=== PATIENT | female | born 1975 | race Native Hawaiian/Other Pacific Islander ===

== ENCOUNTER 2017-08-23 09:05 | Day surgery (SDC) | payer OTHER ==
[2017-08-21 09:05] VITALS: BMI 17.5
[2017-08-23] MEDS ORDERED: Lactated Ringer's 1,000 ML IV ONE ×2 (11:15→12:08)
[2017-08-23] MEDS ORDERED: Midazolam 2 MG/2 ML VIAL ONE (11:19)
[2017-08-23] MEDS ORDERED: Propofol 10 mg/ml Inj (20 ML) ONE (11:19)
[2017-08-23] MEDS ORDERED: HYDROmorphone 0.5 mg/0.5 ml ISec IVP PRN (12:03)
--- NOTE | 2017-08-23 12:18 | PCM.SURG1 ---
Surgeon's Initial Post Op Note - Surgeon's Notes Surgeon: Iram Alberts MD Maintenance Trainer: none Type of Anesthesia: General LMA Pre-Operative Diagnosis: Abnormal uterine bleeding, submucosal myoma Operative Findings: 12 week size antervertd tuers, bilateal ostia visulzed, posteior sumbucosl myoma 1cm protruding into cavity, thickened white enodemtrium , cervical stenosis, urine output 30cc clear yellow urine Post-Operative Diagnosis: same as above Operation Performed: Hysteroscopic myomectomy, Fractional dilation and currettage Specimen/Specimens Removed: submucosal myoma, endocervical curretting, endometrial currettings Estimated Blood Loss: EBL {In ML}: 15 Blood Products Given: N/A Drains Used: No Drains Post-Op Condition: Good Date of Surgery/Procedure: 08/23/17 Time of Surgery/Procedure: 11:30
[2017-08-23] MEDS ORDERED: Lactated Ringer's 500 ML IV ONE (12:57)
[2017-08-23 13:25] VITALS: RESP 18; O2SAT 100
--- NOTE | 2017-08-23 14:35 | OP ---
PROCEDURE DATE: 08/23/2017 PREOPERATIVE DIAGNOSIS: Abnormal uterine bleeding and submucosal myoma. POSTOPERATIVE DIAGNOSIS: Abnormal uterine bleeding and submucosal myoma. OPERATION PERFORMED: Hysteroscopic myomectomy and suction dilatation and curettage. SURGEON: Iram Alberts MD. WILLOW WORKER: None. TYPE OF ANESTHESIA: General LMA. OPERATIVE FINDINGS: A 12 weeks sized anteverted uterus. Bilateral ostia visualized. Posterior submucosal myoma was noted to be protruding in the cavity, thickened endometrium, cervical stenosis. ESTIMATED BLOOD LOSS: 15 mL. BLOOD PRODUCTS: None. URINE OUTPUT: 30 mL of clear yellow urine. COMPLICATIONS: None. SPECIMEN REMOVED: Submucosal myoma, endocervical curettings, endometrial curettings. DESCRIPTION OF PROCEDURE: Risks, benefits, alternatives, indications of procedure were discussed with the patient. The patient signed the consent. All questions were answered. The patient was taken to the operating room where she was given general anesthesia and once it was found to be adequate, the patient was placed on the operating table in the dorsal lithotomy position with legs supported using stirrups. The patient was then prepped and draped in the usual sterile fashion. A time-out confirmed correct patient and correct procedure. Bimanual exam was performed with the above-mentioned findings. A red rubber catheter was then inserted into the urethra to drain the bladder. Following this, a Smalls retractor was placed in the anterior and posterior fornix of the vagina. The cervix was adequately visualized. Endocervical curettings were obtained with a Kevmikeian curette and sent to pathology on [facility]. The uterus was then sounded to 12 cm and following this the cervix was sequentially dilated to allow for introduction of a 5 mm hysteroscope under direct visualization using normal saline as the distention media. Upon within the cavity, bilateral ostia were visualized and submucosal myomas on the posterior aspect noted midway along into the uterine cavity. MyoSure device was then inserted under direct visualization and the mass was then resected under direct visualization. There was good hemostasis noted. The MyoSure device was then removed and a gentle curettage 360 degrees and the specimen was sent to pathology and labeled as endometrial curettings. All instruments were removed. There was good hemostasis noted at the tenaculum puncture site. At the end of the procedure, all needle, sponge and instrument counts were noted and correct x2. The patient tolerated the procedure well and was transferred to the recovery room in stable condition. Iram Alberts MD
[2017-08-23 14:59] VITALS: BP 110/53; PULSE 88; TEMP 98
== END 2017-08-23 14:32 | disposition home or self-care (01) ==
LOC: C.SDS 09:05
PROVIDERS: ATTEND Obstetrics & Gynecology
DX: D25.2 Subserosal leiomyoma of uterus (principal); N93.9 Abnormal uterine and vaginal bleeding, unspecified; D25.0 Submucous leiomyoma of uterus
CPT/HCPCS: 36415; 58558; 86850; 86900; 88305; J2250; J2704; J3010; J7120

== ENCOUNTER 2017-08-28 11:15 | Emergency (ER) | payer OTHER ==
[2017-08-28 11:16] VITALS: BMI 17.5
[2017-08-28 11:49] VITALS: O2SAT 100
--- NOTE | 2017-08-28 12:26 | C.PDOC ---
History Of Present Illness 41 year old female, with past medical history of fibroids, presents to ED for evaluation of vaginal bleeding that started last night. Pt states it has been "flowing" and has used 7 pads since last night. Pt notes she has D&C last month after heavy bleeding (Hemoglobin of 4); this is her first menses after the D&C procedure. (+)chills. Denies dizziness, lightheadedness, headache, abdominal pain, n/v/d, or any other associated symptoms at this time. Time Seen by Provider: 08/28/17 11:55 Chief Complaint (Nursing): Female Genitourinary History Per: Patient History/Exam Limitations: no limitations Onset/Duration Of Symptoms: Days (1) Current Symptoms Are (Timing): Still Present Severity: None Pain Scale Rating Of: 0 Recent travel outside of the [place]: No Additional History Per: Patient Past Medical History Reviewed: Historical Data, Nursing Documentation, Vital Signs Vital Signs: Last Vital Signs Temp 98.8 F 08/28/17 14:20 Pulse 88 08/28/17 14:20 Resp 18 08/28/17 14:20 BP 98/60 L 08/28/17 14:20 Pulse Ox 100 08/28/17 14:20 - Medical History PMH: Anemia Denies: Chronic Kidney Disease Family History: States: Unknown Family Hx - Social History Hx Alcohol Use: No Hx Substance Use: No - Immunization History Hx Tetanus Toxoid Vaccination: No Hx Influenza Vaccination: No Hx Pneumococcal Vaccination: No Review Of Systems Except As Marked, All Systems Reviewed And Found Negative. Constitutional: Positive for: Chills. Negative for: Fever Cardiovascular: Negative for: Chest Pain, Palpitations, Light Headedness Respiratory: Negative for: Shortness of Breath Gastrointestinal: Negative for: Nausea, Vomiting, Abdominal Pain, Diarrhea Genitourinary: Positive for: Vaginal Bleeding. Negative for: Dysuria, Frequency , Vaginal Discharge, Pelvic Pain Musculoskeletal: Negative for: Back Pain Neurological: Negative for: Headache, Dizziness Physical Exam - Physical Exam Appears: Non-toxic, No Acute Distress Skin: Warm, Dry, Pale Head: Atraumatic, Normacephalic Eye(s): bilateral: Normal Inspection, EOMI Nose: Normal Oral Mucosa: Moist Neck: Normal ROM, Supple Chest: Symmetrical Cardiovascular: Rhythm Regular Respiratory: Normal Breath Sounds, No Rales, No Rhonchi, No Wheezing Gastrointestinal/Abdominal: Soft, No Tenderness Back: No CVA Tenderness, No Vertebral Tenderness Extremity: Normal ROM Neurological/Psych: Oriented x3, Normal Speech ED Course And Treatment - Laboratory Results Result Diagrams: 08/28/17 12:34 08/28/17 12:34 O2 Sat by Pulse Oximetry: 100 (RA) Pulse Ox Interpretation: Normal Progress Note: Blood work, UA ordered and reviewed. Pt was given IV fluids. Case discussed with Dr. Olya Alberts who request to start patient on Lysteda and to have pt f/u with her in the office tomorrow. Pt was instructed to follow up with Dr. Olya Alberts in his office tomorrow. Disposition - Disposition Disposition: HOME/ ROUTINE Disposition Time: 15:00 Condition: STABLE Additional Instructions: Follow up with Dr Alberts tomorrow in the office. Return to ER if symptoms persist or worsen. Prescriptions: Tranexamic Acid [Lysteda] 1,300 mg PO Q8 5 Days tablet Instructions: Dysfunctional Uterine Bleeding (ED) Forms: [employer] (Spanish) - Clinical Impression Clinical Impression: DUB (dysfunctional uterine bleeding) - PA / PROFILE SAW OPERATOR / Resident Statement MD/DO has reviewed & agrees with the documentation as recorded. - Scribe Statement The provider has reviewed the documentation as recorded by the Scribaltagracia Alberts All medical record entries made by the Rosa were at my direction and personally dictated by me. I have reviewed the chart and agree that the record accurately reflects my personal performance of the history, physical exam, medical decision making, and the department course for this patient. I have also personally directed, reviewed, and agree with the discharge instructions and disposition.
[2017-08-28 12:39] LABS: BASO # 0.1 K/uL (0.0-0.2); BASO % 1.3 % (0.0-2.0); EOS # 0.1 K/uL (0.0-0.7); EOS % 1.1 % (0.0-4.0); HEMATOCRIT 32.1 % (34.0-47.0); LYMPH # 1.7 K/uL (1.0-4.3); LYMPH % 17.4 % (20.0-40.0); MEAN CORPUSCULAR HEMOGLOBIN 24.6 pg (27.0-31.0); MEAN CORPUSCULAR HGB CONC 32.4 g/dL (33.0-37.0); MEAN PLATELET VOLUME 9.4 fL (7.2-11.7); MONO # 0.5 K/uL (0.0-0.8); MONO % 4.7 % (0.0-10.0); RED CELL DISTRIBUTION WIDTH 27.2 % (11.5-14.5); WHITE BLOOD COUNT 9.8 K/uL (4.8-10.8)
[2017-08-28 12:54] LABS: ALB/GLOB RATIO 1.2 (1.0-2.1); ALKALINE PHOSPHATASE 46 U/L (38-126); ALT/SGPT 25 U/L (9-52); AST/SGOT 20 U/L (14-36); BILIRUBIN,TOTAL 0.3 mg/dL (0.2-1.3); BLOOD UREA NITROGEN 6 mg/dL (7-17); CALCIUM 8.3 mg/dl (8.6-10.4); CARBON DIOXIDE 26 mmol/L (22-30); CHLORIDE 103 mmol/L (98-107); GFR AFRICAN-AMERICAN > 60; GLUCOSE,RANDOM 94 mg/dL (65-105); POTASSIUM 3.9 mmol/L (3.6-5.2); SODIUM 133 mmol/L (132-148); TOTAL PROTEIN 6.5 g/dL (6.3-8.3)
[2017-08-28 12:57] LABS: RBC URINE 474 /hpf (0-3); URINE BILIRUBIN NEGATIVE (NEGATIVE); URINE BLOOD 3+ (NEGATIVE); URINE COLOR Yellow (YELLOW); URINE GLUCOSE (UA) 1+ mg/dL (Normal); URINE KETONE NEGATIVE (NEGATIVE); URINE LEUKOCYTE ESTERASE NEG Leu/uL (Negative); URINE PROTEIN NEGATIVE (NEGATIVE); URINE UROBILINOGEN NORMAL mg/dL (0.2-1.0); WBC URINE 1 /hpf (0-5)
[2017-08-28] MEDS ORDERED: Sodium Chloride 0.9% 1,000 ML IV ONE (13:20)
[2017-08-28] MEDS ORDERED: Sodium Chloride 0.9% 1,000 ML ONE (13:39)
[2017-08-28 14:28] VITALS: BP 98/60; PULSE 88; RESP 18; TEMP 98.8
== END 2017-08-28 14:51 | disposition home or self-care (01) ==
LOC: C.ER 11:15
DX: N93.8 Other specified abnormal uterine and vaginal bleeding (principal)
CPT/HCPCS: 80053; 81001; 84703; 85025; 85610; 85730; 86850; 86900; 96360; 99283; J7040

== ENCOUNTER 2017-09-01 06:25 | Emergency (ER) | payer OTHER ==
[2017-09-01 06:26] VITALS: BMI 17.5
[2017-09-01 06:51] VITALS: TEMP 97.4; O2SAT 100
[2017-09-01 07:10] LABS: BASO # 0.1 K/uL (0.0-0.2); BASO % 0.7 % (0.0-2.0); EOS # 0.1 K/uL (0.0-0.7); EOS % 0.7 % (0.0-4.0); HEMOGLOBIN 9.4 g/dL (11.0-16.0); LYMPH # 1.4 K/uL (1.0-4.3); LYMPH % 12.3 % (20.0-40.0); MEAN CELL VOLUME 76.4 fL (81.0-99.0); MEAN CORPUSCULAR HEMOGLOBIN 25.4 pg (27.0-31.0); MEAN CORPUSCULAR HGB CONC 33.2 g/dL (33.0-37.0); MEAN PLATELET VOLUME 9.9 fL (7.2-11.7); MONO # 0.4 K/uL (0.0-0.8); MONO % 3.1 % (0.0-10.0); NEUT # 9.4 K/uL (1.8-7.0); NEUT % 83.2 % (50.0-75.0); RBC 3.71 Mil/uL (3.80-5.20); RED CELL DISTRIBUTION WIDTH 26.9 % (11.5-14.5); WHITE BLOOD COUNT 11.3 K/uL (4.8-10.8)
[2017-09-01] MEDS ORDERED: Sodium Chloride 0.9% 1,000 ML IV ONE (07:44)
[2017-09-01 08:19] LABS: PROTHROMBIN TIME 10.9 SECONDS (9.7-12.2)
[2017-09-01 08:19] LABS: ALB/GLOB RATIO 1.2 (1.0-2.1); ALBUMIN 3.5 g/dL (3.5-5.0); ALT/SGPT 22 U/L (9-52); AST/SGOT 21 U/L (14-36); BLOOD UREA NITROGEN 8 mg/dL (7-17); CALCIUM 7.9 mg/dl (8.6-10.4); GFR AFRICAN-AMERICAN > 60; GFR NON-AFRICAN AMERICAN > 60
--- NOTE | 2017-09-01 09:05 | C.PDOC ---
History Of Present Illness 41 yo female c/o vaginal bleeding for 5 days. Pt notes that last month she started having heavy menstruation. She had an ultrasound done and was dizgnosed with fibroids. On 08/23/17 she had a D&C with negative pathology report. On she was evaluated in [facility] for heavy bleeding, her hemoglobin was 10.4 and she was sent home on Lysteda. Pt notes she has been complaint with the medication but since she has had episodic heavy bleeding. Pt states this morning it was "flooding" causing her to stay on the toilet. When she saw the blood she "passed out." States it was a few seconds and she did not hit her head. No nausea or vomiting. Notes the bleeding has improved now- used one pad today. Time Seen by Provider: 09/01/17 07:01 Chief Complaint (Nursing): Female Genitourinary History Per: Patient History/Exam Limitations: no limitations Onset/Duration Of Symptoms: Days Current Symptoms Are (Timing): Better Past Medical History Vital Signs: Last Vital Signs Temp 97.4 F L 09/01/17 06:38 Pulse 88 09/01/17 10:35 Resp 16 09/01/17 10:35 BP 96/56 L 09/01/17 10:35 Pulse Ox 100 09/01/17 10:49 - Medical History PMH: Anemia Denies: Chronic Kidney Disease Family History: States: Unknown Family Hx - Social History Hx Alcohol Use: No Hx Substance Use: No - Immunization History Hx Tetanus Toxoid Vaccination: No Hx Influenza Vaccination: No Hx Pneumococcal Vaccination: No Review Of Systems Except As Marked, All Systems Reviewed And Found Negative. Genitourinary: Positive for: Vaginal Bleeding Neurological: Positive for: Weakness, Dizziness Physical Exam - Physical Exam Appears: Well, Non-toxic, No Acute Distress Skin: Warm, Dry, Pale Head: Atraumatic, Normacephalic Eye(s): bilateral: Normal Inspection, PERRL, EOMI Nose: Normal Neck: Normal, Normal ROM, Supple Chest: Symmetrical Cardiovascular: Rhythm Regular Respiratory: Normal Breath Sounds Gastrointestinal/Abdominal: Normal Exam, Soft, No Tenderness Back: Normal Inspection Pelvic: Vaginal Bleeding, No Cervical Motion Tenderness Extremity: Normal ROM Neurological/Psych: Oriented x3, Normal Speech, Normal Cognition, Normal Cranial Nerves (2-12 grossly intact, no focal deficts) Gait: Steady ED Course And Treatment - Laboratory Results Result Diagrams: 09/01/17 07:07 09/01/17 07:07 O2 Sat by Pulse Oximetry: 100 Progress Note: Pt is able to ambulate , steady gait. No dizziness, off balance or weakness. Pt refused any pain medication. Case discussed with Dr Alberts who notes hospitalist is covering her. Case discussed with JOSE Daniels, who evlauated pt in ED and instructs Provera rx for home and out pt follow up with Dr Alberts this week. Pt was instructed to return to ER if symtpoms persist or worsen. Disposition - Disposition Referrals: Iram Alberts MD [Staff Provider] - Disposition: HOME/ ROUTINE Disposition Time: 10:19 Condition: STABLE Additional Instructions: Follow up with primary medical doctor in 1-3 days without fail for further evaluation. Take medications as prescribed. Return to the emergency department at any time if symptoms persist or worsen. Prescriptions: MedroxyPROGESTERone [Provera] 20 mg PO DAILY #10 tab Instructions: Uterine Fibroids (ED) Forms: [employer] (Ukrainian) - Clinical Impression Clinical Impression: DUB (dysfunctional uterine bleeding), Uterine fibroid
[2017-09-01 10:36] VITALS: BP 96/56; PULSE 88; RESP 16
--- NOTE | 2017-09-01 11:16 | CP.PCM.CON ---
History of Present Illness - History of Present Illness History of Present Illness: Called to see Pt who returns to the ER c/o continous bleeding after a Dand C on 08/23/2017. She reports no apparent change in the bleeding after the procedure and have been changing pads frequently. She reports she may not be responding to medication that was given to control bleeding. She is 41yo and is contemplating achieving additional . Patient of Dr Alberts. On discussion with Dr Alberts regarding further managemnt of bleeding. Denies any clots, fever, chills, frequency. Vital signs are stable. . Review of Systems - Menstruation Menstruation: Menses >/= 8 Days Past Patient History - Past Medical History & Family History Past Medical History?: Yes - Past Social History Smoking Status: Never Smoked - CARDIAC Hx Cardiac Disorders: No - PULMONARY Hx Respiratory Disorders: No - NEUROLOGICAL Hx Neurological Disorder: No - HEENT Hx HEENT Problems: No - RENAL Hx Chronic Kidney Disease: No - ENDOCRINE/METABOLIC Hx Endocrine Disorders: No - HEMATOLOGICAL/ONCOLOGICAL Hx Anemia: Yes - INTEGUMENTARY Hx Dermatological Problems: No - MUSCULOSKELETAL/RHEUMATOLOGICAL Hx Musculoskeletal Disorders: No - GASTROINTESTINAL Hx Gastrointestinal Disorders: No - GENITOURINARY/GYNECOLOGICAL Hx Genitourinary Disorders: Yes (ABN MENSES ) - PSYCHIATRIC Hx Substance Use: No - SURGICAL HISTORY Hx Surgeries: Yes Hx Dilation and Curettage: Yes (08/23/17) Hx Eye Surgery: Yes (CHILDHOOD DUE TO TRAUMA) Other/Comment: WISDOM TEETH EXTRACTION - ANESTHESIA Hx Anesthesia: Yes Hx Anesthesia Reactions: No Hx Malignant Hyperthermia: No Meds Home Medications: Home Medication List Medication Instructions Recorded Confirmed Type MedroxyPROGESTERone [Provera] 20 mg PO DAILY #10 tab 09/01/17 Rx Allergies/Adverse Reactions: Allergies Allergy/AdvReac Type Severity Reaction Status Date / Time No Known Allergies Allergy Verified 09/01/17 06:49 Results - Vital Signs Recent Vital Signs: Last Vital Signs Temp 97.4 F L 09/01/17 06:38 Pulse 88 09/01/17 10:35 Resp 16 09/01/17 10:35 BP 96/56 L 09/01/17 10:35 Pulse Ox 100 09/01/17 10:55 - Labs Result Diagrams: 09/01/17 07:07 09/01/17 07:07 Labs: Laboratory Results - last 24 hr 09/01/17 09/01/17 09/01/17 07:07 07:07 07:23 WBC 11.3 H RBC 3.71 L Hgb 9.4 L Hct 28.4 L MCV 76.4 L MCH 25.4 L MCHC 33.2 RDW 26.9 H Plt Count 283 MPV 9.9 Neut % (Auto) 83.2 H Lymph % (Auto) 12.3 L Will % (Auto) 3.1 Eos % (Auto) 0.7 Baso % (Auto) 0.7 Neut # 9.4 H Lymph # 1.4 Will # 0.4 Eos # 0.1 Baso # 0.1 PT INR APTT Sodium 132 Potassium 3.5 L Chloride 102 Carbon Dioxide 24 Anion Gap 9 L BUN 8 Creatinine 0.6 L Est GFR ( Amer) > 60 Est GFR (Non-Af Amer) > 60 Random Glucose 148 H Calcium 7.9 L Total Bilirubin 0.3 AST 21 ALT 22 Alkaline Phosphatase 55 Total Protein 6.4 Albumin 3.5 Globulin 2.9 Albumin/Globulin Ratio 1.2 Blood Type B POSITIVE Antibody Screen Negative 09/01/17 08:07 WBC RBC Hgb Hct MCV MCH MCHC RDW Plt Count MPV Neut % (Auto) Lymph % (Auto) Will % (Auto) Eos % (Auto) Baso % (Auto) Neut # Lymph # Will # Eos # Baso # PT 10.9 INR 1.0 APTT 26 Sodium Potassium Chloride Carbon Dioxide Anion Gap BUN Creatinine Est GFR ( Amer) Est GFR (Non-Af Amer) Random Glucose Calcium Total Bilirubin AST ALT Alkaline Phosphatase Total Protein Albumin Globulin Albumin/Globulin Ratio Blood Type Antibody Screen Assessment & Plan (1) DUB (dysfunctional uterine bleeding) Status: Acute (2) Uterine fibroid Status: Acute - Assessment and Plan (Free Text) Plan: D/C Home. Switch Meds from Lysteda to Provera F/U with Dr Alberts in 4 days. Return to ER if Profuse Bleeding.
--- NOTE | 2017-09-04 12:46 | CARD ---
APPROVED REPORT EKG Measurement Heart [id number] <Conclusion> Sinus rhythm with short NH Low voltage QRS Borderline ECG
== END 2017-09-01 10:48 | disposition home or self-care (01) ==
LOC: C.ER 06:25
DX: N93.8 Other specified abnormal uterine and vaginal bleeding (principal); D25.9 Leiomyoma of uterus, unspecified
CPT/HCPCS: 80053; 85025; 85610; 85730; 86850; 86900; 96360; 99285; J7040